=== PATIENT | female | born 1980 | race Two or more races ===

== ENCOUNTER 2018-08-01 20:05 | Emergency (ER) | payer SELFPAY ==
[~2018-08-01] VITALS: Ht 160 cm; Wt 72.6 kg
[2018-08-01 20:46] VITALS: Ht 160 cm; Wt 72.6 kg
[2018-08-01 23:39] LABS: BASOPHIL % 0.4 % (0-2); PLATELET COUNT 284 x10^3mcL (130-400); RED CELL DISTRIBUTION WIDTH 13.6 % (11.5-14.5)
[2018-08-01 23:50] LABS: CALCIUM 8.7 mg/dL (8.5-10.1); CHLORIDE SERUM 102 mmol/L (98-107); CREATININE SERUM 0.6 mg/dL (0.6-1.0); GFR1 > 60 mL/min; GLUCOSE SERUM 91 mg/dL (74-106); POTASSIUM SERUM 3.7 mmol/L (3.5-5.1); SODIUM SERUM 138 mmol/L (136-145)
[2018-08-02 00:09] LABS: UA SPECIFIC GRAVITY 1.015 (1.005-1.035); microscopic required? YES; urine erythrocyte TRACE (NEGATIVE)
[2018-08-02 00:49] VITALS: BP 130/77
== END 2018-08-02 00:49 | disposition home or self-care (01) ==
LOC: ED 20:05
PROVIDERS: Student in an Organized Health Care Education/Training Program
DX: O20.0 Threatened abortion (principal); O26.891 Other specified pregnancy related conditions, first trimester; J11.1 Influenza due to unidentified influenza virus with other respiratory manifestations; J45.909 Unspecified asthma, uncomplicated; Z88.8 Allergy status to other drugs, medicaments and biological substances; Z3A.01 Less than 8 weeks gestation of pregnancy
CPT/HCPCS: 36415; J7040; Q0092

== ENCOUNTER 2018-08-04 07:54 | Emergency (ER) | payer MEDICAID ==
[~2018-08-04] VITALS: Ht 160 cm; Wt 73.5 kg
[2018-08-04 08:05] VITALS: BP 107/74; Ht 160 cm; Wt 73.5 kg
== END 2018-08-04 09:55 | disposition home or self-care (01) ==
LOC: ED 07:54
DX: Z32.01 Encounter for pregnancy test, result positive (principal); J45.909 Unspecified asthma, uncomplicated; Z88.6 Allergy status to analgesic agent